=== PATIENT | female | born 2000 | race Two or more races ===

== ENCOUNTER 2020-12-22 21:15 | Emergency (ER) | payer OTHER ==
[~2020-12-22] VITALS: Ht 167.6 cm; Wt 63.5 kg
[2020-12-22] MEDS ORDERED: IOPAMIDOL 76 % (ISOVUE-370) 100ML BTL IV ONE (21:40)
[2020-12-22] MEDS ORDERED: SODIUM CHLORIDE 0.9% 1,000 ML IV ONE (22:15)
[2020-12-22] MEDS ORDERED: ONDANSETRON HCL 4 MG/2 ML VIAL IV ONE (22:45)
[2020-12-22] MEDS ORDERED: fentaNYL CITRATE 100 MCG/2 ML VL IV ONE ×2 (22:45→23:45)
[2020-12-22] MEDS ORDERED: METOCLOPRAMIDE HCL 5MG/ml INJ 2ml VIAL IV ONE (23:45)
[2020-12-23] MEDS ORDERED: MEPERIDINE HCL (25 MG/ML) 1ML VIAL IV PRN (00:15)
[2020-12-23] MEDS ORDERED: ASPirin 81 mg TAB PO ONE (00:15)
[2020-12-23] MEDS ORDERED: MORPHINE SULFATE INJECTION 2 MG/ML SYRG IV PRN (00:15)
[2020-12-23] MEDS ORDERED: DEXTROSE (50%) 50ML SYRG IV PRN (00:15)
[2020-12-23] MEDS ORDERED: SODIUM CHLORIDE 0.9% 1,000 ML IV SCH (00:15)
[2020-12-23] MEDS ORDERED: NITROGLYCERIN 0.4 MG SL TAB SL PRN (00:15)
[2020-12-23] MEDS ORDERED: TEMAZEPAM 15 MG CAP PO PRN (00:15)
[2020-12-23] MEDS ORDERED: ONDANSETRON HCL 4 MG/2 ML VIAL IV PRN (00:15)
[2020-12-23 00:19] LABS: Basophils # (auto) 0 10 ^3/uL (0-0.2); Basophils % (auto) 0.2 % (0.0-2.0); Eosinophils # (auto) 0 10 ^3/uL (0-0.8); Eosinophils % (auto) 0.1 % (0.0-7.0); Hematocrit 41.3 % (36.0-46.0); Hemoglobin 14.1 g/dL (12.2-16.2); Lymphocytes # (auto) 0.8 10 ^3/uL (0.4-5.4); Lymphocytes % (auto) 4.6 % (10.0-50.0); Mean Corpuscular Hemoglobin 31.6 pg (28.0-32.0); Mean Corpuscular Hgb Conc. 34.2 g/dL (32.0-36.0); Mean Corpuscular Volume 92.4 fL (80.0-100.0); Monocytes % (auto) 6.1 % (0.0-12.0); Neutrophils # (auto) 14.8 10 ^3/uL (1.6-8.6); Red Blood Cells 4.46 10^6/uL (4.0-5.20); White Blood Cell 16.6 10^3/uL (4.4-10.8)
[2020-12-23 00:33] LABS: INR 1.09 (0.9-1.15)
[2020-12-23 00:40] LABS: Albumin 3.8 g/dL (3.4-5.0); BUN/Creatinine Ratio 16.9; Calcium 8.1 mg/dL (8.5-10.1); Magnesium 2.1 mg/dL (1.6-2.6); Potassium 3.7 mmol/L (3.5-5.1)
[2020-12-23 00:43] LABS: Bilirubin, Total 0.5 mg/dL (0.2-1.0); Total Protein 7.2 g/dL (6.4-8.2)
[2020-12-23 01:00] VITALS: BP 113/58
[2020-12-23] MEDS ORDERED: InsuLIN REG 1unit/0.01ml Soln (100units/ml) SC SCH (06:00)
[2020-12-23] MEDS ORDERED: ACCU-CHEK COMFORT CURVE STRIP VI SCH (06:00)
[2020-12-23] MEDS ORDERED: PANTOPRAZOLE 40 MG/10 ML VIAL INJ IV SCH (10:00)
== END 2020-12-23 00:35 | disposition home or self-care (01) ==
LOC: EDBD 21:15 → ER 21:18 → EDBD 21:18 → UNDOADMIN 21:19 → OVERFLOW 21:19
DX: S30.1XXA Contusion of abdominal wall, initial encounter (principal); R51.9 Headache, unspecified; M54.2 Cervicalgia; V49.59XA Passenger injured in collision with other motor vehicles in traffic accident, initial encounter; Y93.89 Activity, other specified; Y92.488 Other paved roadways as the place of occurrence of the external cause; Y99.8 Other external cause status
CPT/HCPCS: 36415; 70450; 71260; 72125; 74177; 80053; 83735; 85025; 85610; 86850; 86900; 86901; 93005; 96361; 96374; 96375; 96376; 99291; J2405; J2765; J3010; J7030; Q9967